=== PATIENT | female | born 1995 | race Caucasian/White ===

== ENCOUNTER 2018-02-13 20:33 | Emergency (ER) | payer MEDICAID ==
[~2018-02-13] VITALS: Ht 167.6 cm; Wt 68.2 kg
[~2018-02-13 20:33] MED LIST: TUMS500 MG PO
[2018-02-13 20:38] VITALS: Ht 167.6 cm; Wt 68.2 kg
[2018-02-13] MEDS ORDERED: PHENERGAN25 M1 PO (20:39)
[2018-02-13] MEDS ORDERED: PRENAVITE1 TAB PO (20:39)
[2018-02-13 21:32] LABS: BASOPHILS 0.1 % (0-2); EOSINOPHILS 0.8 % (0-7); HEMATOCRIT 35.7 % (36.0-48.0); HEMOGLOBIN 11.9 g/dL (12-16); IMMATURE GRANULOCYTES 0.1 % (0-5); LYMPHOCYTES 26.2 % (15-50); MCH 27.4 pg (26.0-34.0); MCHC 33.3 g/dL (31.0-37.0); MCV 82.1 fL (80.0-100.0); MEAN PLATELET VOLUME 9.8 fL (7.4-10.4); MONOCYTES 10.5 % (2-11); NEUTROPHILS 62.3 % (40-80); PLATELET COUNT 198 10x3/uL (130-400); RBC 4.35 10x6/uL (4.00-5.40); RDW 13.9 % (11.5-14.5); WBC 8.4 10x3/uL (4.8-10.8)
[2018-02-13 21:42] LABS: APPEARANCE CLEAR (CLEAR); BILIRUBIN NEGATIVE (NEGATIVE); COLOR YELLOW (YELLOW); GLUCOSE NEGATIVE (NEGATIVE); KETONE NEGATIVE (NEGATIVE); NITRITE NEGATIVE (NEGATIVE); PROTEIN NEGATIVE (NEGATIVE); SPECIFIC GRAVITY 1.025 (1.005-1.020); UROBILINOGEN NORMAL (NORMAL)
[2018-02-13 21:43] LABS: EPITHELIAL CELLS 0-5 /hpf (0-5); WHITE CELLS - URINE 0-5 /hpf (0-5)
[2018-02-13 21:44] LABS: BACTERIA MANY /hpf (NONE SEEN)
[2018-02-13 21:45] LABS: HCG SERUM POSITIVE (NEGATIVE)
[2018-02-13 21:46] LABS: ALBUMIN 3.7 g/dL (3.4-5.0); ALKALINE PHOSPHATASE 61 U/L (46-116); ALT (SGPT) 21 U/L (10-68); BILIRUBIN - TOTAL 0.12 mg/dL (0.2-1.3); CALC OSMOLALITY 273 mosm/kg (275-300); CALCIUM 9.1 mg/dL (8.5-10.1); CARBON DIOXIDE 27.5 mmol/L (21.0-32.0); CHLORIDE - SERUM 102 mmol/L (98-107); CREATININE - SERUM 0.8 mg/dL (0.6-1.3); GLUCOSE 91 mg/dL (74-106); POTASSIUM - SERUM 3.8 mmol/L (3.5-5.1); PROTEIN - SERUM 7.6 g/dL (6.4-8.2); SODIUM 138 mmol/L (136-145); UREA NITROGEN 8 mg/dL (7-18); eGFR NON AFRICAN AMERICAN > 90 mL/min (90-120)
[2018-02-13 22:15] LABS: HCG - QUANTITATIVE (MATERNAL) 129761 mIU/mL
[2018-02-13 22:54] VITALS: BP 130/84
== END 2018-02-13 22:55 | disposition home or self-care (01) ==
LOC: D.ER 20:33
PROVIDERS: Family Medicine
DX: O20.0 Threatened abortion (principal); Z3A.08 8 weeks gestation of pregnancy

== ENCOUNTER → 2018-06-25 16:37 | Outpatient (CLI) | payer MEDICAID ==
[2018-02-13 20:38] VITALS: BMI 24.2
[~2018-06-25 16:37] MED LIST changes: +PHENERGAN25 M1 PO; +PRENAVITE1 TAB PO
[2018-06-25 17:46] LABS: BASOPHILS 0.1 % (0-2); EOSINOPHILS 0.4 % (0-7); HEMATOCRIT 30.2 % (36.0-48.0); HEMOGLOBIN 9.9 g/dL (12-16); IMMATURE GRANULOCYTES 0.2 % (0-5); LYMPHOCYTES 21.4 % (15-50); MCHC 32.8 g/dL (31.0-37.0); MCV 85.3 fL (80.0-100.0); MEAN PLATELET VOLUME 10.1 fL (7.4-10.4); NEUTROPHILS 67.9 % (40-80); PLATELET COUNT 193 10x3/uL (130-400); RBC 3.54 10x6/uL (4.00-5.40); WBC 9.6 10x3/uL (4.8-10.8)
[2018-06-25 18:00] LABS: ALBUMIN 2.4 g/dL (3.4-5.0); ALKALINE PHOSPHATASE 84 U/L (46-116); ALT (SGPT) 12 U/L (10-68); BILIRUBIN - DIRECT 0.06 mg/dL (0.00-0.30); BILIRUBIN - INDIRECT 0.14 mg/dL (0.00-1.00); CALC OSMOLALITY 273 mosm/kg (275-300); CALCIUM 8.3 mg/dL (8.5-10.1); CARBON DIOXIDE 23.9 mmol/L (21.0-32.0); CHLORIDE - SERUM 103 mmol/L (98-107); CREATININE - SERUM 0.7 mg/dL (0.6-1.3); GLUCOSE 106 mg/dL (74-106); POTASSIUM - SERUM 3.5 mmol/L (3.5-5.1); PROTEIN - SERUM 6.7 g/dL (6.4-8.2); SODIUM 138 mmol/L (136-145); UREA NITROGEN 8 mg/dL (7-18); URIC ACID 3.4 mg/dL (2.6-7.2); eGFR NON AFRICAN AMERICAN > 90 mL/min (90-120)
[2018-06-25 18:19] LABS: APPEARANCE CLEAR (CLEAR); BILIRUBIN NEGATIVE (NEGATIVE); COLOR YELLOW (YELLOW); GLUCOSE 50 mg/dL (NEGATIVE); KETONE NEGATIVE (NEGATIVE); NITRITE NEGATIVE (NEGATIVE); PROTEIN TRACE mg/dL (NEGATIVE); UROBILINOGEN NORMAL (NORMAL)
[2018-06-25 18:21] LABS: BACTERIA MODERATE /hpf (NONE SEEN); EPITHELIAL CELLS 0-5 /hpf (0-5); RED CELLS - URINE 0-5 /hpf (0-5); WHITE CELLS - URINE OCC /hpf (0-5)
== END | disposition home or self-care (01) ==
LOC: D.LDO 16:37
PROVIDERS: Obstetrics & Gynecology
DX: O16.9 Unspecified maternal hypertension, unspecified trimester (principal); Z3A.00 Weeks of gestation of pregnancy not specified

== ENCOUNTER 2018-08-15 17:44 | Outpatient (CLI) | payer MEDICAID ==
[2018-02-13 20:38] VITALS: BMI 24.2
[2018-08-15 18:03] LABS: APPEARANCE CLEAR (CLEAR); BILIRUBIN NEGATIVE (NEGATIVE); COLOR YELLOW (YELLOW); GLUCOSE NEGATIVE (NEGATIVE); KETONE NEGATIVE (NEGATIVE); NITRITE NEGATIVE (NEGATIVE); PROTEIN NEGATIVE (NEGATIVE); UROBILINOGEN NORMAL (NORMAL)
[2018-08-15 18:04] LABS: BACTERIA MANY /hpf (NONE SEEN); EPITHELIAL CELLS 0-5 /hpf (0-5); RED CELLS - URINE OCC /hpf (0-5); WHITE CELLS - URINE 0-5 /hpf (0-5)
== END 2018-08-15 21:20 | disposition home or self-care (01) ==
LOC: D.LDO 17:44
PROVIDERS: ATTEND Obstetrics & Gynecology
DX: O26.893 Other specified pregnancy related conditions, third trimester (principal); Z3A.34 34 weeks gestation of pregnancy

== ENCOUNTER → 2018-08-24 09:02 | Outpatient (CLI) | payer MEDICAID ==
[~2018-08-24 09:02] MED LIST changes: +ACETAMINOPHEN500 M1 PO; +GLYBURIDE2.5 MG PO; +HYDROCODON-ACE1 EA10 PO; +MOTRIN600 MG PO
== END | disposition home or self-care (01) ==
LOC: D.LDO 09:02
DX: O35.9XX0 Maternal care for (suspected) fetal abnormality and damage, unspecified, not applicable or unspecified (principal)

== ENCOUNTER 2018-08-29 09:25 | Inpatient (IN) | payer MEDICAID ==
[2018-08-29] VITALS (13 sets, daily range): BP systolic 110–136; BP diastolic 54–87; BMI 34.9
[~2018-08-29 09:25] MED LIST changes: -ACETAMINOPHEN500 M1 PO; -GLYBURIDE2.5 MG PO; -HYDROCODON-ACE1 EA10 PO; -MOTRIN600 MG PO
[2018-08-29 09:54] LABS: BASOPHILS 0.1 % (0-2); EOSINOPHILS 0.4 % (0-7); HEMATOCRIT 31.2 % (36.0-48.0); HEMOGLOBIN 9.9 g/dL (12-16); IMMATURE GRANULOCYTES 0.4 % (0-5); LYMPHOCYTES 25.3 % (15-50); MCH 25.2 pg (26.0-34.0); MCHC 31.7 g/dL (31.0-37.0); MCV 79.4 fL (80.0-100.0); MEAN PLATELET VOLUME 10.4 fL (7.4-10.4); MONOCYTES 10.3 % (2-11); NEUTROPHILS 63.5 % (40-80); RBC 3.93 10x6/uL (4.00-5.40); RDW 13.9 % (11.5-14.5); WBC 8.4 10x3/uL (4.8-10.8)
[2018-08-29 09:58] LABS: PLATELET COUNT 240 10x3/uL (130-400)
[2018-08-29] MEDS ORDERED: GLYBURIDE2.5 MG PO (10:53)
[2018-08-29] MEDS ORDERED: ACETAMINOPHEN500 M1 PO (10:55)
[2018-08-29 17:18] LABS: BASOPHILS 0.1 % (0-2); EOSINOPHILS 0 % (0-7); HEMATOCRIT 29.3 % (36.0-48.0); HEMOGLOBIN 9.4 g/dL (12-16); IMMATURE GRANULOCYTES 0.2 % (0-5); LYMPHOCYTES 11.9 % (15-50); MCH 25.4 pg (26.0-34.0); MCHC 32.1 g/dL (31.0-37.0); MCV 79.2 fL (80.0-100.0); MEAN PLATELET VOLUME 10.5 fL (7.4-10.4); MONOCYTES 7.8 % (2-11); PLATELET COUNT 200 10x3/uL (130-400); RDW 13.9 % (11.5-14.5)
[2018-08-29 18:00] LABS: WBC 14.5 10x3/uL (4.8-10.8)
[2018-08-30 03:18] VITALS: BP 127/89
[2018-08-30 06:44] LABS: BASOPHILS 0.1 % (0-2); EOSINOPHILS 0.6 % (0-7); HEMATOCRIT 29.4 % (36.0-48.0); HEMOGLOBIN 9.4 g/dL (12-16); IMMATURE GRANULOCYTES 0.1 % (0-5); LYMPHOCYTES 18.4 % (15-50); MCH 25.5 pg (26.0-34.0); MCV 79.7 fL (80.0-100.0); MEAN PLATELET VOLUME 10.6 fL (7.4-10.4); NEUTROPHILS 71.8 % (40-80); PLATELET COUNT 170 10x3/uL (130-400); RBC 3.69 10x6/uL (4.00-5.40); RDW 14.1 % (11.5-14.5)
[2018-08-30 06:45] LABS: WBC 9.5 10x3/uL (4.8-10.8)
[2018-08-30 07:22] LABS: RAPID PLASMA REAGIN Non Reactive (Non Reactive)
[2018-08-30 07:34] VITALS: BP 128/77
[2018-08-30 10:14] VITALS: BMI 34.8
[2018-08-30] MEDS ORDERED: HYDROCODON-ACE1 EA10 PO (11:51)
[2018-08-30] MEDS ORDERED: MOTRIN600 MG PO (11:52)
== END 2018-08-30 13:00 | disposition home or self-care (01) | DRG 788 ==
LOC: D.LDO 09:25 → D.LD 10:15
PROVIDERS: ADMIT Obstetrics & Gynecology
PROC: 10D00Z1 Extraction of Products of Conception, Low, Open Approach (ICD-10-PCS; principal; 2018-08-29 11:30)
DX: O24.429 Gestational diabetes mellitus in childbirth, unspecified control (principal); Z3A.36 36 weeks gestation of pregnancy; Z37.0 Single live birth; O40.3XX0 Polyhydramnios, third trimester, not applicable or unspecified; O99.344 Other mental disorders complicating childbirth; F41.9 Anxiety disorder, unspecified; O34.211 Maternal care for low transverse scar from previous cesarean delivery